=== PATIENT | female | born 1930 | race Caucasian/White ===

== ENCOUNTER 2019-12-03 18:20 | Emergency (ER) | payer MEDICAID ==
[~2019-12-03] VITALS: Ht 157.5 cm; Wt 64.0 kg
[2019-12-03] MEDS ORDERED: HYDROCODONE/ACETAMINOPHEN 10/325MG TABLET PO ONE (23:15)
[2019-12-04 00:23] VITALS: BP 133/67
== END 2019-12-04 00:26 | disposition home or self-care (01) ==
LOC: ER 18:20
DX: S82.892A Other fracture of left lower leg, initial encounter for closed fracture (principal); I10 Essential (primary) hypertension; E11.9 Type 2 diabetes mellitus without complications; W18.2XXA Fall in (into) shower or empty bathtub, initial encounter; Z91.81 History of falling; Y93.89 Activity, other specified; Y92.012 Bathroom of single-family (private) house as the place of occurrence of the external cause
CPT/HCPCS: 29515; 72170; 73562; 73590; 73600; 73620; 99284